=== PATIENT | male | born 1985 | race Caucasian/White ===

== ENCOUNTER 2016-11-04 20:56 | Emergency (ER) | payer OTHER ==
[~2016-11-04] VITALS: Ht 177.8 cm; Wt 73.5 kg
[2016-11-04 21:47] LABS: HEMATOCRIT 40.5 % (38.0-50.0); MCH 30.6 PG (29.0-34.0); MCHC 36.5 G/DL (30.0-36.0); MCV 83.9 FL (86-99); MEAN PLAT.VOLUME 9.6 uM^3 (9.0-12.4); PLATELET COUNT 284 K/uL (156-360); RBC DIS.WIDTH-CV 12.6 % (11.8-14.6); RBC DIS.WIDTH-SD 38.3 % (39-53); RED BLOOD COUNT 4.83 M/uL (4.00-5.50); WHITE BLOOD COUNT 6.9 K/uL (4.1-10.2)
[2016-11-04 22:03] LABS: CHLORIDE 108 mEq/L (99-109); POTASSIUM 3.8 mEq/L (3.7-5.4); SODIUM 142 mEq/L (136-147)
[2016-11-04 22:05] LABS: GLUCOSE 109 mg/dL (70-99)
[2016-11-04 22:06] LABS: ANION GAP 9 MEQ/L (2-14)
[2016-11-04 22:09] LABS: GFR ESTIMATE (CALCULATED) > 59 mL/min/
[2016-11-04 22:10] LABS: UREA NITROGEN (BUN) 14 mg/dL (9-23)
[2016-11-04 22:12] LABS: TROP-I INTERPRETATION NEGATIVE; TROPONIN-I < 0.01 ng/mL (0.0-0.30)
[2016-11-04 23:23] LABS: D-DIMER ELISA < 0.15 mg/L FEU (< 0.57)
[2016-11-04 23:31] LABS: TROP-I INTERPRETATION NEGATIVE; TROPONIN-I < 0.01 ng/mL (0.0-0.30)
[2016-11-04] MEDS ORDERED: NAPROSYN500 MG PO (23:39)
[2016-11-04] MEDS ORDERED: FLEXERIL10 MG PO (23:39)
[2016-11-04] MEDS ORDERED: ULTRAM50 MG PO (23:39)
[2016-11-05 00:08] VITALS: BP 121/78
== END 2016-11-05 00:10 | disposition home or self-care (01) ==
LOC: EME 20:56 → RME 20:56
PROVIDERS: Physician Assistant
DX: R07.9 Chest pain, unspecified (principal); Z87.891 Personal history of nicotine dependence
CPT/HCPCS: 71020; 80048; 84484; 85027; 85379; 93005; 99281; 99284